=== PATIENT | female | born 1950 | race Caucasian/White ===

== ENCOUNTER 2020-02-08 05:59 | Emergency (ER) | payer MEDICARE ==
[2020-02-08] MEDS ORDERED: TETRACAINE 0.5% OPHTH SOLN 4ML ONE (07:21)
[2020-02-08] MEDS ORDERED: FLUORESCEIN OPHTH 1 MG STRIP As Ordered ONE (07:21)
[2020-02-08] MEDS ORDERED: FLUORESCEIN OPHTH 1 MG STRIP ONE (07:21)
[2020-02-08] MEDS ORDERED: TETRACAINE 0.5% OPHTH SOLN 4ML As Ordered ONE (07:21)
[2020-02-08] MEDS ORDERED: POTASSIUM CHLORIDE 10 MEQ SR TABLET As Ordered ONE (12:11)
[2020-02-08] MEDS ORDERED: POTASSIUM CHLORIDE 10 MEQ SR TABLET ONE (12:11)
[2020-02-21] MEDS ORDERED: MULT-90 PO (09:43)
[2020-02-21] MEDS ORDERED: HYDR25TAB PO (09:43)
[2020-02-21] MEDS ORDERED: METO1TAB32 PO (09:43)
[2020-02-21] MEDS ORDERED: VITA500C19 PO (09:43)
[2020-02-21] MEDS ORDERED: CIDA500T2 PO (09:43)
[2020-02-21] MEDS ORDERED: CETI10CH PO (09:43)
[2020-02-21] MEDS ORDERED: LISI-538 PO (09:43)
[2020-02-21] MEDS ORDERED: ATOR1TAB21 PO (09:43)
[2020-02-21] MEDS ORDERED: CALCCAP4 PO (09:43)
[2020-03-25 07:49] LABS: BASO % 0.3 % (0.0-1.0); EOS # 0.1 10^3/uL (0.0-0.5); EOS % 0.7 % (0.0-3.0); HEMOGLOBIN 15.1 g/dl (12.0-15.5); LYMPH # 2.5 10^3/uL (1.5-5.0); LYMPH % 27.3 % (24.0-44.0); MEAN CORPUSCULAR HEMOGLOBIN 30.5 pg (27.0-33.0); MEAN CORPUSCULAR HGB CONC 33.6 g/dl (32.0-36.5); MEAN CORPUSCULAR VOLUME 90.9 fl (80.0-96.0); MONO # 0.4 10^3/uL (0.0-0.8); MONO % 4.3 % (0.0-5.0); NEUTROPHILS # 6.2 10^3/uL (1.5-8.5); NEUTROPHILS % 67.2 % (36.0-66.0); PLATELET COUNT, AUTOMATED 333 10^3/uL (150-450); RED BLOOD COUNT 4.95 10^6/uL (4.00-5.40); WHITE BLOOD COUNT 9.2 10^3/uL (4.0-10.0)
== END 2020-02-08 13:00 | disposition home or self-care (01) ==
LOC: M ED 05:59
DX: H53.121 Transient visual loss, right eye (principal); E87.6 Hypokalemia; H53.9 Unspecified visual disturbance; E78.5 Hyperlipidemia, unspecified; N83.209 Unspecified ovarian cyst, unspecified side; Z88.0 Allergy status to penicillin; Z79.899 Other long term (current) drug therapy

== ENCOUNTER → 2020-02-23 | Outpatient (CLI) | payer BC ==
[~2020-02-23] MED LIST: ATOR1TAB21 PO; CALCCAP4 PO; CETI10CH PO; CIDA500T2 PO; HYDR25TAB PO; LISI-538 PO; METO1TAB32 PO; MULT-90 PO; VITA500C19 PO
== END ==
LOC: M LABSMTC 10:00
PROVIDERS: ATTEND Anesthesiology
DX: Z03.818 Encounter for observation for suspected exposure to other biological agents ruled out (principal); Z11.59 Encounter for screening for other viral diseases
CPT/HCPCS: C9803; U0003

== ENCOUNTER 2020-02-28 10:53 | Day surgery (SDC) | payer MEDICARE ==
[~2020-02-28] VITALS: Ht 157.5 cm; Wt 108.0 kg
[~2020-02-28 10:53] MED LIST changes: +LIDOCAINE 2% 100MG/5ML SDV (FOR ANES.) As Ordered ONE; +propofoL 200 MG/20 ML VIAL As Ordered ONE
[2020-02-28] MEDS ORDERED: NS 1,000 ML IV ONE (11:15)
[2020-02-28] MEDS ORDERED: propofoL 200 MG/20 ML VIAL As Ordered ONE (12:49)
[2020-02-28 13:25] VITALS: BP 126/90
--- NOTE | 2020-03-08 11:31 | ROOR ---
Patient Name: Emily Harley Procedure Date: 02/28/2020 9:04 AM Date of : 1950 Age: 69 Gender: Female Note Status: Finalized Procedure: Colonoscopy Indications: High risk colon cancer surveillance: Personal history of colonic polyps Providers: Dagoberto Thorne MD Referring MD: Mono Vega DO Requesting Provider: Medicines: Monitored Anesthesia Care Complications: No immediate complications. Procedure: Pre-Anesthesia Assessment: - Prior to the procedure, a History and Physical was performed, and patient medications and allergies were reviewed. The patient is competent. The risks and benefits of the procedure and the sedation options and risks were discussed with the patient. All questions were answered and informed consent was obtained. Patient identification and proposed procedure were verified by the physician, the nurse and the anesthesiologist in the procedure room. Mental Status Examination: alert and oriented. Airway Examination: normal oropharyngeal airway and neck mobility. Respiratory Examination: clear to auscultation. CV Examination: normal. Prophylactic Antibiotics: The patient does not require prophylactic antibiotics. Prior Anticoagulants: The patient has taken no previous anticoagulant or antiplatelet agents. ASA Grade Assessment: II - A patient with mild systemic disease. After reviewing the risks and benefits, the patient was deemed in satisfactory condition to undergo the procedure. The anesthesia plan was to use monitored anesthesia care (MAC). Immediately prior to administration of medications, the patient was re-assessed for adequacy to receive sedatives. The heart rate, respiratory rate, oxygen saturations, blood pressure, adequacy of pulmonary ventilation, and response to care were monitored throughout the procedure. The physical status of the patient was re-assessed after the procedure. The Colonoscope was introduced through the anus and advanced to the terminal ileum, with identification of the appendiceal orifice and IC valve. The colonoscopy was performed without difficulty. The patient tolerated the procedure well. The quality of the bowel preparation was good. The terminal ileum, ileocecal valve, appendiceal orifice, and rectum were photographed. Scope insertion time was 3 minutes. Scope withdrawal time was 9 minutes. The total duration of the procedure was 12 minutes. Findings: The perianal and digital rectal examinations were normal. The terminal ileum appeared normal. Four sessile polyps were found in the rectum, descending colon and cecum. The polyps were 3 to 5 mm in size. These polyps were removed with a jumbo cold forceps. Resection and retrieval were complete. Verification of patient identification for the specimen was done by the physician and nurse using the patient's name, date and medical record number. Estimated blood loss was minimal. Multiple small and large-mouthed diverticula were found from sigmoid to descending colon. There was no evidence of diverticular bleeding. Non-bleeding external and internal hemorrhoids were found during retroflexion. The hemorrhoids were medium-sized. Impression: - The examined portion of the ileum was normal. - Four 3 to 5 mm polyps in the rectum, in the descending colon and in the cecum, removed with a jumbo cold forceps. Resected and retrieved. - Moderate diverticulosis from sigmoid to descending colon. There was no evidence of diverticular bleeding. - Non-bleeding external and internal hemorrhoids. Recommendation: - Patient has a contact number available for emergencies. The signs and symptoms of potential delayed complications were discussed with the patient. Return to normal activities tomorrow. Written discharge instructions were provided to the patient. - High fiber diet. - Continue present medications. - Await pathology results. - Repeat colonoscopy in 3 - 5 years for surveillance based on pathology results. - Telephone GI clinic for pathology results in 2 weeks. - Return to primary care physician. Dagoberto Thorne MD 02/28/2020 1:01:00 PM Number of Addenda: 0 Note Initiated On: 02/28/2020 9:04 AM Estimated Blood Loss: Estimated blood loss was minimal.
== END 2020-02-28 13:29 | disposition home or self-care (01) ==
LOC: M OPP 10:53
PROVIDERS: ATTEND Internal Medicine Gastroenterology
DX: Z86.010 Personal history of colon polyps (principal); Z08 Encounter for follow-up examination after completed treatment for malignant neoplasm; K64.8 Other hemorrhoids; K62.1 Rectal polyp; K63.5 Polyp of colon; K57.30 Diverticulosis of large intestine without perforation or abscess without bleeding; I10 Essential (primary) hypertension; Z79.899 Other long term (current) drug therapy